=== PATIENT | male | born 1960 | race Caucasian/White ===

== ENCOUNTER 2017-10-06 00:12 | Day surgery (SDC) | payer OTHER ==
[~2017-10-06] VITALS: Ht 177.8 cm; Wt 98.0 kg
[~2017-10-06 00:12] MED LIST: ASP81 PO; ASPI-1471 PO; ASPI-715 PO; CALC-635 PO; DILT-100 PO; DILT180C4 PO; DILT360C3 PO; DILT360C35 PO; EZE10 PO; GLUC-198 PO; LIS5 PO; LISI-362 PO; METO-1 PO; METO-253 PO; METXL50 PO; MULT-885 PO; OMEG-28 PO; ROS10 PO; ROSU20TA23 PO; ROSU5TAB8 PO; UBID100C9 PO; [UNRECOGNIZED DRUG - CODE] PO; [UNRECOGNIZED DRUG - CODE] PO
[2017-10-06] MEDS ORDERED: PROPOFOL EMUL(*) 10MG/ML 20 ML 40 ML ONE (07:03)
[2017-10-06] MEDS ORDERED: NORMOSOL R SOLN(*) 1000 ML BAG 1,000 ML IV PRN (09:40)
[2017-10-06] MEDS ORDERED: LIDOCAINE/SOD BICARB 8.4% SYR ID ONE (09:40)
[2017-10-06 09:42] VITALS: BP 131/91
[2017-10-06] MEDS ORDERED: PROPOFOL EMUL(*) 10MG/ML 20 ML 20 ML ONE ×2 (11:56→12:05)
[2017-10-06 12:14] VITALS: BP 101/66
--- NOTE | 2017-10-06 12:22 | Short(Outpt) Discharge Summary ---
Discharge Summary Reason for Hosp/Final Diag: (1) History of colon polyps Status: Chronic Hospital Course & Plan: Colonoscopy with biopsy of ascending colon mass and removal of sigmoid colon polyp completed without problems. Departure Discharge to: Home, Self Care Discharge Instructions Home Meds Active Scripts Diltiazem Hcl (DILTIAZEM 24HR ER) 360 Mg Cap.er.24h, 1 CAP PO QDAY, #90 CAP 4 Refills Prov:ISMAEL CALHOUN MD 11/09/16 Lisinopril (LISINOPRIL) 10 Mg Tablet, 1 TAB PO QDAY, #90 TAB 4 Refills Prov:ISMAEL CALHOUN MD 11/09/16 Metoprolol Tartrate (METOPROLOL TARTRATE) 50 Mg Tab, 1 TAB PO BID, #180 TAB 4 Refills Prov:ISMAEL CALHOUN MD 11/09/16 Reported Medications Glucosa Love 2KCL/Chondroitin Love (GLUCOSAMINE & CHONDROITIN CAP) 1 Each Capsule, 1 CAP PO BID, CAPSULE 11/05/15 Calcium Carbonate/Vitamin D3 (CALCIUM 600 + VIT D3 TABLET) 1 Each Tablet, 1 TAB PO QDAY 05/01/14 Multivitamin (DAILY VITAMIN) 1 Each Tablet, 1 TAB PO QDAY 05/01/14 [place]-3 Fatty Acids/Fish Oil (FISH OIL CONC 1,000 MG SOFTGEL) 1 Each Capsule, 1 CAP PO QDAY, CAPSULE 05/01/14 Aspirin (ASPIR 81) 81 Mg Tablet., 1 TAB PO QDAY, TAB 05/01/14 Ubidecarenone (CO Q-10) 100 Mg Capsule, 1 CAP PO QDAY, CAPSULE 05/01/14 Follow up Referrals: General Surgery - 10/15/17 @ Surgery, General with Dann Muse Md You have a follow up appointment scheduled with Dr. Muse on 10/15/17, at 12:00pm. Diet: Regular Activity: As Tolerated Special Instructions: Your colonoscopy was complted without any problems. You have a mass in your right colon just above where your small intestine empties into your colon. I performed biopsies of this but this will need to be surgically removed in the near future. I also removed a small polyp from your sigmoid colon. My clinic nurse, Monika, will be contacting you to arrange for some blood tests and CT scans of your chest, abdomen, and pelvis so I have these results available to me when I see you back in my office on 10/15/17, in addition to your biopsy results from today's colonoscopy. Copies to: ISMAEL CALHOUN MD, JOHN A MD Oct 06, 2017 12:22
--- NOTE | 2017-10-06 12:33 | Short(Outpt) Discharge Summary ---
Discharge Summary Reason for Hosp/Final Diag: (1) History of colon polyps Status: Chronic Hospital Course & Plan: Colonoscopy with biopsy of ascending colon mass and removal of sigmoid colon polyp completed without problems. Departure Discharge to: Home, Self Care Discharge Instructions Home Meds Active Scripts Diltiazem Hcl (DILTIAZEM 24HR ER) 360 Mg Cap.er.24h, 1 CAP PO QDAY, #90 CAP 4 Refills Prov:ISMAEL CALHOUN MD 11/09/16 Lisinopril (LISINOPRIL) 10 Mg Tablet, 1 TAB PO QDAY, #90 TAB 4 Refills Prov:ISMAEL CALHOUN MD 11/09/16 Metoprolol Tartrate (METOPROLOL TARTRATE) 50 Mg Tab, 1 TAB PO BID, #180 TAB 4 Refills Prov:ISMAEL CALHOUN MD 11/09/16 Reported Medications Glucosa Love 2KCL/Chondroitin Love (GLUCOSAMINE & CHONDROITIN CAP) 1 Each Capsule, 1 CAP PO BID, CAPSULE 11/05/15 Calcium Carbonate/Vitamin D3 (CALCIUM 600 + VIT D3 TABLET) 1 Each Tablet, 1 TAB PO QDAY 05/01/14 Multivitamin (DAILY VITAMIN) 1 Each Tablet, 1 TAB PO QDAY 05/01/14 [place]-3 Fatty Acids/Fish Oil (FISH OIL CONC 1,000 MG SOFTGEL) 1 Each Capsule, 1 CAP PO QDAY, CAPSULE 05/01/14 Aspirin (ASPIR 81) 81 Mg Tablet., 1 TAB PO QDAY, TAB 05/01/14 Ubidecarenone (CO Q-10) 100 Mg Capsule, 1 CAP PO QDAY, CAPSULE 05/01/14 Follow up Referrals: General Surgery - 10/12/17 @ Surgery, General with Jaylan Holland Md You have a follow up appointment scheduled with Dr. Holland on 10/12/17, at 11:30am. Diet: Regular Activity: As Tolerated Special Instructions: Your colonoscopy was complted without any problems. You have a mass in your right colon just above where your small intestine empties into your colon. I performed biopsies of this but this will need to be surgically removed in the near future. I also removed a small polyp from your sigmoid colon. My clinic nurse, Monika, will be contacting you to arrange for some blood tests and CT scans of your chest, abdomen, and pelvis so I have these results available to me when I see you back in my office on 10/15/17, in addition to your biopsy results from today'scolonoscopy. JAYLAN HOLLAND MD Oct 06, 2017 12:33
[2017-10-06 12:53] VITALS: BP 119/75
[2017-10-06 13:04] LABS: PLATELET COUNT, AUTOMATED 223 K/uL (150-450)
[2017-10-06 13:13] VITALS: BP 141/96
[2017-10-06 13:15] VITALS: BP 145/91
== END 2017-10-06 13:30 | disposition home or self-care (01) ==
LOC: OR 00:12
PROVIDERS: ATTEND Surgery
DX: Z12.11 Encounter for screening for malignant neoplasm of colon (principal); K63.5 Polyp of colon
CPT/HCPCS: 00811; 36415; 45380; 45385; 82248; 82378; 85025; 88305; J2704; 82040; 82247; 82310; 82374; 82435; 82565; 82947; 84075; 84132; 84155; 84295; 84450; 84460; 84520

== ENCOUNTER → 2017-10-08 | Outpatient (CLI) | payer OTHER ==
[~2017-10-08] MED LIST changes: +IOPAMIDOL 76% 100 ML INFUS BTL 100 ML ONE; +NS 0.9% 150 ML BAG 150 ML ONE
--- NOTE | 2017-10-08 11:43 | RADIOLOGY IMAGING REPORT ---
FACILITY: [facility] [place] PATIENT NAME: Roberto Raygoza : 1960 MR: [id number] V: [id number] EXAM DATE: ORDERING PHYSICIAN: JAYLAN HOLLAND TECHNOLOGIST: Location: [facility] Patient: Roberto Raygoza : 1960 Visit/Account:[id number] Date of Sevice: 10/08/2017 CHEST/AB/PELV W/CONTRAST HISTORY: Colon cancer ADDITIONAL HISTORY: None. TECHNIQUE: Pre and post administration of IV contrast axial images acquired through the chest abdome n and pelvis during the portal venous phase. Coronal and sagittal reformatting was also performed. D ose Lowering Technique One of the following dose optimization techniques was utilized in the performance of this exam: Autom ated exposure control; adjustment of the mA and/or kV according to the patient's size; or use of an i terative reconstruction technique. Specific details can be referenced in the facility's radiology C T exam operational policy. CONTRAST: 100 mL Isovue-370 COMPARISON: None. FINDINGS: CHEST: Lungs/Pleura: There is a 3 mm noncalcified nodule anterior aspect superior segment of the left lower lobe best seen on image 51 of series 7 Mediastinum/lymph nodes: Negative. Heart/vessels: Negative. Bones/soft tissues: There are spondylotic changes in the lower cervical spine. No aggressive appear ing bone lesions are seen. ABDOMEN AND PELVIS: Hepatobiliary: There Is a 7 mm enhancing nodule lateral segment left lobe of the liver best seen on image 85 of series 2 and coronal image #38 Spleen: Negative. Pancreas: Negative. Adrenals: Negative. Kidneys ureters and bladder : There is a 1.2 cm cyst projecting from the posterior aspect of the mid right kidney. There is no evidence of hydronephrosis or hydroureter. Genitalia: Negative. GI: There Is diverticulosis left-sided colon although no CT evidence of acute diverticulitis. The appendix is visualized and does not appear inflamed There is a heterogeneous masslike area seen in the cecum and proximal ascending colon likely related to patient's reported colon cancer. There does not appear to be extraluminal extension of the mass. There are several mesenteric lymph nodes in the right lower quadrant just medial and posterior to th e cecum. A industrial relations representative lymph node measures 9 x 6 x 1.2 cm Vessels/spaces/nodes: Please see GI section concerning mesenteric lymph nodes the right lower quadra nt . Bones/soft tissues: Spondylotic changes L5-S1 and moderate severe degenerative changes of both hip j oints . There is a small umbilical hernia containing fat. There are bilateral inguinal hernias con taining fat Additional findings: None pertinent. IMPRESSION: There is a heterogeneous masslike area in the cecum and proximal ascending colon likely related to cat rico's reported colon cancer. There does not appear to be extraluminal extension of the mass. Ther e are several small mesenteric lymph nodes the right lower quadrant as detailed above. Diverticulosis left-sided colon although no CT evidence of acute diverticulitis 3 mm noncalcified nodule superior segment left lower lobe. For nodules less than 6 mm in a low risk p atient (minimal or absent smoking history, no history of malignancy), no routine followup is recommen ded. In a high risk patient (smoking or malignancy history), optional 12 month followup can be obtain ed.. There is a 7 mm enhancing nodule lateral segment left lobe of the liver as described above. This cou ld represent a perfusional variant versus an enhancing mass. Depending upon the clinical concern MR of the liver with and without contrast may be helpful Degenerative changes of the cervical and lumbar spine and both hip joints Report Dictated By: Michelle Silva MD at 10/08/2017 11:22 AM Report E-Signed By: Michelle Silva MD at 10/08/2017 11:39 AM TABITHAN:AMICIVN
== END ==
LOC: CT 03:20
PROVIDERS: ATTEND Surgery
DX: R91.8 Other nonspecific abnormal finding of lung field (principal); R93.2 Abnormal findings on diagnostic imaging of liver and biliary tract; N28.1 Cyst of kidney, acquired; K57.30 Diverticulosis of large intestine without perforation or abscess without bleeding
CPT/HCPCS: 71260; 74177; Q9967

== ENCOUNTER 2017-10-28 01:03 | Inpatient (IN) | payer OTHER ==
[2017-10-25 13:20] LABS: PLATELET COUNT, AUTOMATED 259 K/uL (150-450)
--- NOTE | 2017-10-25 13:23 | EKG ---
FACILITY: [facility] [place] PATIENT NAME: GRETCHEN RICHARDSON : [id number] MR: [id number] V: [id number] EXAM DATE: ORDERING PHYSICIAN: MOSES MARTIN TECHNOLOGIST: KERA Jean Reason : PRE-OP COLON CANCER Blood Pressure : / mmHG Vent. Rate : 072 BPM Atrial Rate : 072 BPM P-R Int : 144 ms QRS Dur : 104 ms QT Int : 392 ms P-R-T Axes : 075 -29 074 degrees QTc Int : 429 ms Sinus rhythm Left axis Nonspecific interventricular conduction delay Borderline ECG No previous ECGs available Confirmed by RAVI SHEPPARD ([id number]) on 10/25/2017 2:35:03 PM Referred By: AMALIA Confirmed By:RAVI SHEPPARD
[~2017-10-28] VITALS: Ht 177.8 cm; Wt 95.7 kg
[2017-10-28] VITALS (11 sets, daily range): BP systolic 121–152; BP diastolic 79–105
[~2017-10-28 01:03] MED LIST changes: -IOPAMIDOL 76% 100 ML INFUS BTL 100 ML ONE; -NS 0.9% 150 ML BAG 150 ML ONE
[2017-10-28] MEDS ORDERED: AMPICILLIN/SULBACT (*) 3 GM VL 3 GM in NS(*) 0.9% 100 ML BAG 100 ML IVPB ONE (09:25)
[2017-10-28] MEDS ORDERED: LIDOCAINE/SOD BICARB 8.4% SYR ID ONE (09:25)
[2017-10-28] MEDS ORDERED: NORMOSOL R SOLN(*) 1000 ML BAG 1,000 ML IV PRN (09:25)
[2017-10-28] MEDS ORDERED: MIDAZOLAM 2 MG/2 ML VIAL IVP PRN (09:25)
[2017-10-28] MEDS ORDERED: FAMOTIDINE 20 MG TAB PO ONE (09:25)
[2017-10-28] MEDS ORDERED: fentaNYL CITR 250 MCG/5 ML AMP ONE ×4 (10:45→17:12)
[2017-10-28] MEDS ORDERED: LIDOCAINE 2% IV 100 MG/5ML SYR ONE (10:45)
[2017-10-28] MEDS ORDERED: PROPOFOL EMUL(*) 10MG/ML 20 ML 20 ML ONE (10:48)
[2017-10-28] MEDS ORDERED: ROPIVACAINE 0.5% 20 ML VIAL ONE ×2 (13:15→18:32)
[2017-10-28] MEDS ORDERED: INDOCYANINE GREEN 25 MG VIAL IVP ONE (13:45)
[2017-10-28] MEDS ORDERED: ROCURONIUM BROM 10 MG/ML 5 ML ONE (13:45)
[2017-10-28] MEDS ORDERED: ROCURONIUM BROM 10 MG/ML 10 ML ONE (13:45)
[2017-10-28] MEDS ORDERED: DEXAMETHASONE SOD PHOS 10MG/ML ONE (13:52)
[2017-10-28] MEDS ORDERED: ONDANSETRON 4 MG/2 ML VIAL ONE (13:53)
[2017-10-28] MEDS ORDERED: KETAMINE HCL 200 MG/20 ML MDV ONE ×3 (13:54→16:35)
[2017-10-28] MEDS ORDERED: ACETAMINOPHEN(*)1000 MG/100 ML 100 ML IVPB ONE (16:42)
[2017-10-28] MEDS ORDERED: SUGAMMADEX SOD 200 MG/2 ML SDV ONE (17:40)
[2017-10-28] MEDS ORDERED: fentaNYL CITR 100 MCG/2 ML AMP ONE ×2 (18:03→19:08)
[2017-10-28] MEDS ORDERED: FLUSH 10 ML SYR IVP PRN (19:00)
[2017-10-28] MEDS ORDERED: NALOXONE HCL 0.4 MG/ML VIAL IVP PRN (19:00)
[2017-10-28] MEDS ORDERED: ONDANSETRON 4 MG/2 ML VIAL IVP PRN (19:00)
--- NOTE | 2017-10-28 19:29 | Post Operative Progress Note ---
Post Operative Progress Note Date: October 28, 2017 Time: 19:06 Surgeon: Almaz Dictation number: [id number] Anesthesia: GETA by Dr. Reeder Pre-Op Diagnosis: Cecal cancer Post-Op Diagnosis: YU Findings: C/W dx Procedure(s): Robotic Right Hemicolectomy with intracorporeal anastomosis Specimen Removed:(May be N/A): Right colon Complications: None Fluids: See anesthesia record Estimated Blood Loss: 100mL Date OP Note Dictated: October 28, 2017 Time OP Note Dictated: 19:07 JAYLAN HOLLAND MD October 28, 2017 19:09
[2017-10-28] MEDS: NS(*) 0.9% 1000 ML BAG 1,000 ML IV PRN (20:35)
[2017-10-28] MEDS: AMPICILLIN/SULBACT (*) 3 GM VL 3 GM in NS(*) 0.9% 100 ML BAG 100 ML IVPB SCH (20:35)
[2017-10-28] MEDS: HYDROmorphone PCA 6 MG/30 ML IV PRN (20:36)
--- NOTE | 2017-10-28 21:29 | OPERATIVE REPORT 1 ---
EVENT DATE: October 28, 2017 SURGEON: Dann Muse MD ANESTHESIOLOGIST: Arthur Reeder MD ANESTHESIA: General endotracheal anesthesia. PREOPERATIVE DIAGNOSIS Cecal cancer. POSTOPERATIVE DIAGNOSIS Cecal cancer. PROCEDURE PERFORMED Robotic right hemicolectomy with intracorporeal anastomosis. COMPLICATIONS None. CONDITION Stable. BLOOD LOSS Less than 100 mL. URINE OUTPUT 250 mL INDICATIONS This is a 57-year-old gentleman whom I recently performed a colonoscopy on and found a cecal cancer. He provided consent for a robotic right hemicolectomy. DESCRIPTION OF PROCEDURE The patient was brought to the operating room and placed supine on the operating table. General endotracheal anesthesia was administered, and his abdomen was prepped and draped in a sterile fashion. Timeout was completed. I anesthetized the left subcostal skin with 0.5% ropivacaine plain. I made an 8 mm transverse incision in the left subcostal skin and then used the Veress needle and accessed the peritoneal cavity and insufflated to a pressure of 15 mmHg. I then used an optical trocar with the 5 mm, zero-degree scope inside and focused and then inserted the robotic 8 mm port through this wound into the insufflated abdomen under direct visualization without any problems. Next, I placed a 12 mm port in the suprapubic midline, an 8 mm port in the left lower quadrant along the umbilical spinal line, and then a 12 mm port in the left mid abdomen between the left lower quadrant and left upper quadrant ports. The patient was planed towards his left. Another robot was set up and targeted, and the camera and instruments were inserted. Then, I initially started and did a medial to lateral approach and identified the ileocolic vessels, which I cleaned off circumferentially, then clipped proximally and distally, and divided between clips. I then lifted the mesocolon up into the retroperitoneal plane and dissected laterally along the entire length of the ascending colon. I was able to stay out of Gerota fascia and avoid the ureter and gonadal vessels. I then the omentum off of the transverse colon on the right side from the hepatic flexure to not quite midway into the transverse colon. I then divided the lateral attachments of the terminal ileum, appendix, and ascending colon, and dropped into the space that I had already developed behind the mesentery, and this served to mobilize the entire right colon into the transverse colon. I then isolated the areas of the terminal ileum and the transverse colon and then used the Firefly to identify the line of demarcation. I then used the Endo RIKKI stapler with a blue load and divided the terminal ileum more than 10 cm proximal to the ileocecal valve and in the transverse colon at the line of demarcation. This would have been the equivalent of an extended right hemicolectomy based on vascular perfusion of the colon. I then continued to take down the hepatic flexure attachments, and then at this point the entire right colon was free and not attached to anything. I then tucked it over the liver and then brought up the terminal ileum and put it adjacent to the transverse colon and made sure it laid naturally. It just incidentally laid naturally in a nice peristaltic fashion. I placed a single 3-0 Vicryl suture as a stay stitch and then made a colotomy and enterotomy adjacent to each other. I then used the RIKKI stapler with a blue load and inserted the stapler into the enterotomy and the colotomy and then fired the stapler to create the anastomosis. I then closed the conjoined enterocolotomy with initial running full-thickness layer of 3-0 Vicryl sutures and then oversewed this entire suture line with Lembert interrupted 3-0 Vicryl sutures. After this was completed and all the needles and the loose suture were removed from the abdomen, I used another dose of ICG and just confirmed that the transverse colon and terminal ileum were both well perfused at the anastomosis. They lit up a bright green with rapid perfusion after ICG administration. I then suctioned and irrigated the patient's abdomen and looked for any signs of bleeding or other problems, and there was none. I then sewed a suture to the specimen and pulled the suture out through the suprapubic port. I then desufflated the abdomen and made a transverse Pfannenstiel incision in the suprapubic skin. I dissected down through the dermis and subcutaneous fat. I identified the midline fascia and made a vertical incision in the midline fascia , split the rectus fibers without cutting them, and then extended the peritoneal incision at the port it was going through. I then placed a wound protector through this and then used the suture to pull out the specimen while protecting the wound with the wound protector. The specimen was passed off the field, and I then removed the wound protector. I then closed the midline fascia with looped PDS and then closed the subcutaneous fat with a running 3-0 Vicryl suture, and the skin was closed with running 4-0 Monocryl subcuticular sutures. I then re-insufflated the abdomen and looked around for any problems that would have arisen while I was dealing with the Pfannenstiel incision, and there was none. I pulled the omentum down over the viscera, including the anastomosis. I did reinspect the anastomosis, and again, it laid in a natural position with no tension and good perfusion. This was covered nicely with his omentum. I then used a Hyacinth to place [id number] Vicryl suture through the 12 mm fascia in the left mid abdomen and tied this down. It was airtight when this was completed. I then desufflated the abdomen, removed the remaining 8 mm ports, and then closed the skin at the other three incisions with 4-0 Monocryl subcuticular sutures. The skin was cleaned, dried, and Steri- Strips were applied, followed by sterile surgical dressings. The patient was awakened and extubated in the operating room and transported to the recovery room in stable condition having tolerated the procedure without any apparent problems. ANDREA
[2017-10-28] MEDS: METOPROLOL TART 50 MG TAB PO SCH (21:53)
[2017-10-29] VITALS (10 sets, daily range): BP systolic 107–133; BP diastolic 71–84; BMI 30.3
[2017-10-29] MEDS: ACETAMINOPHEN(*)1000 MG/100 ML 100 ML IVPB SCH ×4 (00:09→17:37)
[2017-10-29] MEDS: AMPICILLIN/SULBACT (*) 3 GM VL 3 GM in NS(*) 0.9% 100 ML BAG 100 ML IVPB SCH ×4 (02:27→19:41)
[2017-10-29 05:49] LABS: PLATELET COUNT, AUTOMATED 191 K/uL (150-450)
[2017-10-29] MEDS: NS(*) 0.9% 1000 ML BAG 1,000 ML IV PRN ×2 (07:37→17:37)
--- NOTE | 2017-10-29 07:44 | General Surgery Progress Note ---
Subjective Progress Notes Subjective No complaints. Mild abdominal discomfort. No flatus. No Nausea or bloating. Physical Exam Vital Signs Date Time Temp Pulse Resp B/P (MAP) Pulse Ox O2 Delivery O2 Flow Rate FiO2 10/29/17 06:03 16 94 10/29/17 05:00 81 109/75 (86) Nasal Cannula 2.0 10/29/17 01:25 98.9 Intake and Output 10/30/17 07:00 Intake Total 1000 ml Balance 1000 ml IV Total 1000 ml General Appearance: Alert, Awake, No Acute Distress, Afebrile GI: Other (Soft, appropriate postop TTP, dressings C/D/I.) Extremities: Warm, Perfused Result Diagram: 10/29/1739 10/29/1739 Assessment and Plan Problems: (1) Cecal cancer Status: Chronic Assessment & Plan: 10/29/17: POD#1 s/p robotic right hemicolectomy for cecal cancer. Doing well. No flatus yet. Good pain control. Continue bowel rest until flatus. Ambulate today, IS, pulmonary hygiene. Start lovenox tomorrow. Condition Stable. Time Spent: < 30 min Exam Sepsis Risk: No Definite Risk JAYLAN HOLLAND MD October 29, 2017 07:43
[2017-10-29] MEDS ORDERED: DILTIAZEM CD 180 MG CAPCR PO SCH (09:00)
[2017-10-29] MEDS: MULTIVITAMINS TAB PO SCH (09:38)
[2017-10-29] MEDS: PANTOPRAZOLE SOD 40 MG IV VIAL IVP SCH (09:38)
[2017-10-29] MEDS: LISINOPRIL 10 MG TAB PO SCH (09:39)
[2017-10-29] MEDS: METOPROLOL TART 50 MG TAB PO SCH ×2 (09:39→20:39)
[2017-10-29] MEDS: KETOROLAC 30 MG/ML VIAL IVP SCH ×3 (09:41→20:38)
[2017-10-29] MEDS: DILTIAZEM CD 180 MG CAPCR PO SCH (20:39)
[2017-10-30] MEDS: ACETAMINOPHEN(*)1000 MG/100 ML 100 ML IVPB SCH ×5 (00:13→23:27)
[2017-10-30 00:18] VITALS: BP 114/74
[2017-10-30] MEDS: HYDROmorphone PCA 6 MG/30 ML IV PRN (00:54)
[2017-10-30] MEDS: AMPICILLIN/SULBACT (*) 3 GM VL 3 GM in NS(*) 0.9% 100 ML BAG 100 ML IVPB SCH ×4 (02:50→23:27)
[2017-10-30] MEDS: NS(*) 0.9% 1000 ML BAG 1,000 ML IV PRN (02:53)
[2017-10-30] MEDS: KETOROLAC 30 MG/ML VIAL IVP SCH ×4 (02:53→20:17)
[2017-10-30 03:01] VITALS: BP 106/72
[2017-10-30 06:05] LABS: PLATELET COUNT, AUTOMATED 157 K/uL (150-450)
[2017-10-30] MEDS: PANTOPRAZOLE SOD 40 MG IV VIAL IVP SCH (08:20)
[2017-10-30] MEDS: METOPROLOL TART 50 MG TAB PO SCH ×2 (08:21→20:17)
[2017-10-30] MEDS: LISINOPRIL 10 MG TAB PO SCH (08:21)
[2017-10-30] MEDS: ENOXAPARIN 40 MG/0.4ML SYR SC SCH (08:21)
[2017-10-30] MEDS: MULTIVITAMINS TAB PO SCH (08:21)
[2017-10-30] MEDS ORDERED: NS(*) 0.9% 1000 ML BAG 1,000 ML IV PRN (08:40)
--- NOTE | 2017-10-30 08:40 | General Surgery Progress Note ---
Subjective Progress Notes Subjective No complaints this morning. No flatus but he feels like he needs to pass flatus or even have a BM. Pain well controlled. Physical Exam Vital Signs Date Time Temp Pulse Resp B/P (MAP) Pulse Ox O2 Delivery O2 Flow Rate FiO2 10/30/17 05:12 14 94 10/30/17 03:01 68 106/72 (83) Nasal Cannula 1.0 10/29/17 15:09 98.6 Intake and Output 10/31/17 07:00 Output Total 450 ml Balance -450 ml Output Urine Total 450 ml General Appearance: Alert, Awake, No Acute Distress, Afebrile GI: Other (Soft, appropriate postop TTP, dressings removed. Incisions all look good without erythema or drainage.) Extremities: Warm, Perfused Result Diagram: 10/30/17 0508 10/30/17 0508 Assessment and Plan Problems: (1) Cecal cancer Status: Chronic Assessment & Plan: 10/29/17: POD#1 s/p robotic right hemicolectomy for cecal cancer. Doing well. No flatus yet. Good pain control. Continue bowel rest until flatus. Ambulate today, IS, pulmonary hygiene. Start lovenox tomorrow. 10/30/17: POD#2. Doing well. Awaiting return of bowel function. Continue bowel rest for now. CCM. Condition Stable. Time Spent: < 30 min Exam Sepsis Risk: No Definite Risk JAYLAN HOLLAND MD October 30, 2017 08:40
[2017-10-30 14:05] VITALS: BP 125/76
[2017-10-30 19:03] VITALS: BP 126/83
[2017-10-30] MEDS: DILTIAZEM CD 180 MG CAPCR PO SCH (20:17)
[2017-10-30 22:32] VITALS: BP 113/83
[2017-10-31] MEDS: KETOROLAC 30 MG/ML VIAL IVP SCH ×2 (02:19→08:29)
[2017-10-31 03:36] VITALS: BP 122/76
[2017-10-31] MEDS: AMPICILLIN/SULBACT (*) 3 GM VL 3 GM in NS(*) 0.9% 100 ML BAG 100 ML IVPB SCH (04:55)
[2017-10-31] MEDS: ACETAMINOPHEN(*)1000 MG/100 ML 100 ML IVPB SCH (05:36)
[2017-10-31 06:17] LABS: PLATELET COUNT, AUTOMATED 163 K/uL (150-450)
[2017-10-31 08:18] VITALS: BP 142/87
[2017-10-31] MEDS: PANTOPRAZOLE SOD 40 MG IV VIAL IVP SCH (08:34)
[2017-10-31] MEDS: MULTIVITAMINS TAB PO SCH (08:38)
[2017-10-31] MEDS: METOPROLOL TART 50 MG TAB PO SCH ×2 (08:38→21:05)
[2017-10-31] MEDS: LISINOPRIL 10 MG TAB PO SCH (08:38)
[2017-10-31] MEDS: ENOXAPARIN 40 MG/0.4ML SYR SC SCH (08:40)
--- NOTE | 2017-10-31 09:33 | General Surgery Progress Note ---
Subjective Progress Notes Subjective No complaints. Not much pain. Passing flatus, had multiple BMs yesterday. Physical Exam Vital Signs Date Time Temp Pulse Resp B/P (MAP) Pulse Ox O2 Delivery O2 Flow Rate FiO2 10/31/17 08:57 94 Room Air 10/31/17 08:18 98.4 82 16 142/87 (105) 10/31/17 04:55 1.0 Intake and Output 11/01/17 07:00 # Voids 1 General Appearance: Alert, Awake, No Acute Distress, Afebrile GI: Other (Soft, mild appropriate postop TTP. Incisions all look good.) Extremities: Warm, Perfused Result Diagram: 10/31/17 0510/31/17 0533 Assessment and Plan Problems: (1) Cecal cancer Status: Chronic Assessment & Plan: 10/29/17: POD#1 s/p robotic right hemicolectomy for cecal cancer. Doing well. No flatus yet. Good pain control. Continue bowel rest until flatus. Ambulate today, IS, pulmonary hygiene. Start lovenox tomorrow. 10/30/17: POD#2. Doing well. Awaiting return of bowel function. Continue bowel rest for now. CCM. 10/31/17: POD#3. Doing well. Bowel function is good. Started clear diet yesterday and he is tolerating this. Will start regular diet today, stop IV fluids, convert meds to PO, possibly home tomorrow. Continue ambulation, IS, pulmonary hygiene, lovenox. Condition Stable. Time Spent: < 30 min Exam Sepsis Risk: No Definite Risk JAYLAN HOLLAND MD October 31, 2017 09:33
[2017-10-31] MEDS ORDERED: POTASSIUM CHL 20 MEQ TABCR PO ONE (10:00)
[2017-10-31 11:31] VITALS: BP 112/77
[2017-10-31 14:52] VITALS: BP 120/74
[2017-10-31] MEDS: IBUPROFEN 600 MG TAB PO PRN (18:58)
[2017-10-31 19:20] VITALS: BP 134/87
[2017-10-31] MEDS: DILTIAZEM CD 180 MG CAPCR PO SCH (21:05)
[2017-11-01 00:07] VITALS: BP 128/84
[2017-11-01 03:35] VITALS: BP 120/79
[2017-11-01 07:37] VITALS: BP 146/90
[2017-11-01] MEDS ORDERED: PER PO (08:21)
--- NOTE | 2017-11-01 08:25 | Short(Outpt) Discharge Summary ---
Discharge Summary Reason for Hosp/Final Diag: (1) Cecal cancer Status: Chronic Hospital Course & Plan: 10/29/17: POD#1 s/p robotic right hemicolectomy for cecal cancer. Doing well. No flatus yet. Good pain control. Continue bowel rest until flatus. Ambulate today, IS, pulmonary hygiene. Start lovenox tomorrow. 10/30/17: POD#2. Doing well. Awaiting return of bowel function. Continue bowel rest for now. CCM. 10/31/17: POD#3. Doing well. Bowel function is good. Started clear diet yesterday and he is tolerating this. Will start regular diet today, stop IV fluids, convert meds to PO, possibly home tomorrow. Continue ambulation, IS, pulmonary hygiene, lovenox. 11/01/17: POD#4. Doing well. Tolerating regular diet with good bowel function. Will d/c to home today. F/U with me in 2 weeks. Departure Discharge to: Home, Self Care Discharge Instructions Home Meds Active Scripts Oxycodone/Acetaminophen (OXYCODONE/ACETAMINOPHEN 5MG/325 MG) 5 Mg/325 Mg Tab, 1- 2 TAB PO Q4H Y for PAIN, #30 TAB 0 Refills Prov:JAYLAN HOLLAND MD 11/01/17 Diltiazem Hcl (DILTIAZEM 24HR ER) 360 Mg Cap.er.24h, 1 CAP PO QDAY, #90 CAP 4 Refills Prov:ISMAEL CALHOUN MD 11/09/16 Lisinopril (LISINOPRIL) 10 Mg Tablet, 1 TAB PO QDAY, #90 TAB 4 Refills Prov:ISMAEL CALHOUN MD 11/09/16 Metoprolol Tartrate (METOPROLOL TARTRATE) 50 Mg Tab, 1 TAB PO BID, #180 TAB 4 Refills Prov:ISMAEL CALHOUN MD 11/09/16 Reported Medications Glucosa Love 2KCL/Chondroitin Love (GLUCOSAMINE & CHONDROITIN CAP) 1 Each Capsule, 1 CAP PO BID, CAPSULE 11/05/15 Calcium Carbonate/Vitamin D3 (CALCIUM 600 + VIT D3 TABLET) 1 Each Tablet, 1 TAB PO QDAY 05/01/14 Multivitamin (DAILY VITAMIN) 1 Each Tablet, 1 TAB PO QDAY 05/01/14 [place]-3 Fatty Acids/Fish Oil (FISH OIL CONC 1,000 MG SOFTGEL) 1 Each Capsule, 1 CAP PO BID, CAPSULE 05/01/14 Aspirin (ASPIR 81) 81 Mg Tablet.dr, 1 TAB PO QDAY, TAB 05/01/14 Ubidecarenone (CO Q-10) 100 Mg Capsule, 1 CAP PO QDAY, CAPSULE 05/01/14 Follow up Referrals: General Surgery - 11/15/17 @ Surgery, General with Jaylan Holland Md You have a follow up appointment scheduled with Dr. Holland on 11/15/17, at 1:00pm. Diet: Regular Activity: No Heavy Lifting Special Instructions: You may shower as desired but don't immerse the incisions for 2 weeks. Leave the incisions open to air but leave the steristrips in place until they fall off on their own. Avoid any activity that involves straining or lifting more than 10 pounds for 6 weeks after surgery. Take the minimum amount of oxycodone/apap necessary to control your pain but no more. Don't take acetaminophen/tylenol within 6 hours of taking the oxycodone/apap to avoid getting too much acetaminophen/tylenol which can harm your liver. You can also take ibuprofen/motrin for pain control as well and it is safe to take this concurrently either with acetaminophen/tylenol or oxycodone/apap. JAYLAN HOLLAND MD November 01, 2017 08:25
[2017-11-01] MEDS ORDERED: PANTOPRAZOLE SOD 40 MG TABEC PO SCH (09:00)
[2017-11-01 09:20] VITALS: Ht 177.8 cm; Wt 95.7 kg
[2017-11-01] MEDS: MULTIVITAMINS TAB PO SCH (09:40)
[2017-11-01] MEDS: METOPROLOL TART 50 MG TAB PO SCH (09:40)
[2017-11-01] MEDS: LISINOPRIL 10 MG TAB PO SCH (09:41)
[2017-11-01] MEDS: ENOXAPARIN 40 MG/0.4ML SYR SC SCH (09:42)
[2017-11-01] MEDS: IBUPROFEN 600 MG TAB PO PRN (12:39)
== END 2017-11-01 14:45 | disposition home or self-care (01) | DRG 331 ==
LOC: OR 01:03 → MED 20:08
PROVIDERS: ADMIT Surgery; ATTEND Surgery
PROC: 8E0W4CZ Robotic Assisted Procedure of Trunk Region, Percutaneous Endoscopic Approach (ICD-10-PCS; 2017-10-28)
PROC: 0DTF4ZZ Resection of Right Large Intestine, Percutaneous Endoscopic Approach (ICD-10-PCS; principal; 2017-10-28 13:44)
DX: C18.0 Malignant neoplasm of cecum (principal); E78.5 Hyperlipidemia, unspecified; I10 Essential (primary) hypertension; G47.33 Obstructive sleep apnea (adult) (pediatric); E66.9 Obesity, unspecified; R00.0 Tachycardia, unspecified; Z79.82 Long term (current) use of aspirin; Z97.3 Presence of spectacles and contact lenses; Z68.30 Body mass index [BMI] 30.0-30.9, adult
CPT/HCPCS: 36415; 82310; 82374; 82435; 82565; 82947; 84132; 84295; 84520; 85025; 86850; 86900; 86901; 88309; 88344; 93005; C9113; J0131; J0295; J1100; J1170; J1650; J1885; J2001; J2250; J2405; J2704; J2795; J3010; J3490; J7030; J7050

== ENCOUNTER → 2018-05-02 | Outpatient (CLI) | payer OTHER ==
[2017-11-01 09:20] VITALS: BMI 30.3
[~2018-05-02] MED LIST changes: +PER PO
[2018-05-02 14:51] LABS: LDL CHOLESTEROL 138 mg/dl
== END ==
LOC: LAB 12:49
PROVIDERS: ATTEND Internal Medicine
DX: Z12.5 Encounter for screening for malignant neoplasm of prostate (principal); I10 Essential (primary) hypertension; E78.2 Mixed hyperlipidemia
CPT/HCPCS: 36415; 82040; 82247; 82310; 82374; 82435; 82465; 82565; 82947; 83718; 84075; 84132; 84153; 84155; 84295; 84450; 84460; 84478; 84520